=== PATIENT | male | born 1985 | race Caucasian/White ===

== ENCOUNTER 2023-06-05 15:38 | Day surgery (SDC) | payer BC, SELFPAY ==
[2023-06-05] VITALS (10 sets, daily range): BP systolic 134–172; BP diastolic 75–119; BMI 31.2; BMI 31.0
--- NOTE | 2023-06-05 10:58 | ED.GENMED ---
History of Present Illness
General
Chief Complaint: Flank Pain
Source: patient
Exam Limitations: none
Time Seen by Provider: 06/05/23 10:40
Travel History
Have you had any contact with someone who has COVID-19?: No
Do you have any symptoms of coronavirus? Fever > 100 degrees, chills, cough, shortness of breath, sore throat, loss of taste or smell, muscle aches, or headache?: No
History of Present Illness
History of Present Illness:
See MDM
Past History
Past History
ED Past Medical History: None
ED Past Surgical History: None
Social History
Personal: Single
Living: with family
Employment: Employed
Phy Exam
Physical Exam
Physical Exam:
See MDM
Course
Orders/Labs/Results
Orders:
Orders
06/05/23 10:55
CT Abd/pelvis W Iv Cont Urgent
Comment:
Reason For Exam: R flank and RLQ pain
06/05/23 10:59
Complete Blood Count/With Diff Urgent
Comprehensive Metabolic Panel Urgent
06/05/23 13:59
Piperacillin/Tazo 3.375 Gram [Zosyn] 3.375 gram in 50 ml IV NOW
06/05/23 14:18
Admit/Transfer Patient As Directed
Co-Sign Provider:
Level of Care: Post Proc/Surg Recovery
Assign to:: Medical/Surgical
Physician / Group: [facility]/Gen surg
Diagnosis: appendicitis
Reason for Overnight Stay: Standard of Care
Code Status As Directed
Resuscitation Status: Full Code
06/05/23 14:35
HYDROmorphone [Dilaudid] 0.25 mg IV PACU-Q5MPRN PRN
HYDROmorphone [Dilaudid] 0.5 mg IV PACU-Q5MPRN PRN
Meperidine [Demerol] 12.5 mg IV PACU-Q5MPRN PRN
Ondansetron Injectable [Zofran] 4 mg IV PACU-ONCEPRN PRN
Prochlorperazine [Compazine] 5 mg IV PACU-ONCEPRN PRN
Notify MD As Directed
Notify physician if: for SDS patients with known or suspected sleep obstructive sleep apnea, monitor in the
PACU.
Notify MD for any apneic/desaturation episodes
O2 Therapy [RESP] Urgent
Titrate/Wean O2 to maintain O2 sat greater than (%): 92
Special Instructions: -Provide supplemental oxygen to achieve O2 sat of 92% or greater.
-After 15 min, may wean O2 and discontinue if patient is able to maintain O2 sat of 92%
or greater during recovery period.
If patient is a discharge home, without oxygen therapy, notify anestheiologist if
unable to maintain O2 SAT of 92% or greater on room air for MD clearance.
06/05/23 14:45
Normosol (Mult Electrolytes) [Normosol-R] 1,000 ml IV PER PROTOCOL
Abnormal Lab Results
06/05/23
10:59
WBC 11.5 H 10^3/uL
(4.8-10.8)
Absolute Neuts (auto) 9.2 H 10^3/uL
(1.4-6.5)
Absolute Monos (auto) 0.7 H 10^3/uL
(0.1-0.6)
Neutrophils % 79.7 H %
(42.2-75.2)
Lymphocytes % 13.6 L %
(20.5-51.1)
Glucose 108 H mg/dl
(70-99)
06/05/23 10:59
06/05/23 10:59
Vital Signs
Initial and Last Documented VS:
Initial Vital Signs
Temp Pulse Resp BP Pulse Ox
98.0 F 89 16 166/119 99
06/05/23 10:12 06/05/23 10:12 06/05/23 10:12 06/05/23 10:12 06/05/23 10:12
Last Documented Vital Signs
Temp Pulse Resp BP Pulse Ox
99.2 F 71 16 163/98 99
06/05/23 16:23 06/05/23 16:23 06/05/23 16:23 06/05/23 16:23 06/05/23 16:23
MDM/Problems Addressed
Differential Diagnosis Includes:
HPI and MDM Narrative:
37-year-old male presenting with right flank pain. It is worse with certain movements. He does not recall any strenuous lifting. He denies urinary symptoms. Upon further questioning, patient is worried that it could be early appendicitis. Given
his history and pain, will obtain CT
Physical exam
General: Well appearing and non-toxic
HEENT: protecting airway
Neck: appears supple
CV: No evidence of cyanosis
Resp: No accessory muscle use.
Abd: Non-distended. Mild right flank and right lower quadrant tenderness without rebound
Extremities: No deformities
Neuro: alert
Psych: Normal affect
Skin: Intact
Problems Addressed including Acute and Chronic Conditions affecting care:
1. Abdominal pain
Acuity: acute
Prognosis: stable
Details: Will obtain CT to rule out early appendicitis
Updates
CT consistent with acute uncomplicated appendicitis. Will start Zosyn. Surgery made aware
Differential Diagnosis (but not limited to): Appendicitis, muscle strain, constipation, kidney stone
Testing considered: Right upper quadrant ultrasound
Drug therapy (if applicable): OTC meds, please see d/c instruction regarding Rx drugs
Amount and/or Complexity of Data Reviewed
Clinical info obtained from: Patient
External data reviewed: N/A
Labs I independently reviewed (but not limited to): Mild leukocytosis
Radiology: The CT scan was personally and independently reviewed. In addition, official CT report reviewed.
Pulse Ox: not hypoxic
EKG independently reviewed: N/A
Entry Level Web Developer: N/A
Critical Care: N/A
Risk of Complication:
Social Determinants of health: Good social support
Discussed with other providers: General surgery
Escalation of Care includes Admit/Obs: Will admit for surgery
Occasional wrong word or 'sound a like' substitutions may have occurred due to the inherent limitations of voice recognition software. Read the chart carefully and recognize, using context, where substitutions have occurred.
*Critical Care Note
Total Time (30-74mins, 75-104mins- exclusive of procedures): Not Applicable
ED Attending Note
-
Portions of this chart may have been created with voice recognition software.� Occasional wrong word or��sound alike� substitutions may have occurred due to the inherent limitations of voice recognition software.
Discharge Plan
Departure
Patient Disposition: Admit
Date of Disposition: 06/05/23
Time of Disposition: 14:01
Presentation/result/management discussed w/ accepting MD/DO: General Surgery
Discharge Problem:
Acute appendicitis
Interventions
Interventions:
*Risk Screen - Suicide Last Done: 06/05/23 11:02
*General Assessment Last Done: 06/05/23 10:12
*Neglect/Abuse Screening Last Done: 06/05/23 11:02
ED- Fall Risk Assessment Last Done: 06/05/23 11:03
*ED COVID-19 Vaccine History Last Done: 06/05/23 10:12
SW-Thnmvr-Ezipxeexiw Assessment Last Done: 06/05/23 11:04
ED-Male Genitourinary Assessment Last Done: 06/05/23 11:04
[2023-06-05 11:10] LABS: % Basophils 0.3 % (0-2); % Eosinophils 0.2 % (0-6); % Immature Granulocytes 0.3 % (0-0.5); % Lymphocytes 13.6 % (20.5-51.1); % Monocytes 5.9 % (1.7-9.3); % Neutrophils 79.7 % (42.2-75.2); Absolute Lymphocytes 1.6 10^3/uL (1.2-3.4); Absolute Monocytes 0.7 10^3/uL (0.1-0.6); Absolute Neutrophils 9.2 10^3/uL (1.4-6.5); Hematocrit 44.5 % (39.0-52.0); Hemoglobin 15.9 g/dL (13.0-18.0); Mean Corp Hgb Conc. 35.7 g/dL (33.0-37.0); Mean Corpuscular Hgb 30.2 pg (27.0-31.0); Mean Corpuscular Volume 84.4 fL (80.0-94.0); Mean Platelet Volume 9.1 fL (7.4-10.4); Nucleated Red Blood Cells % 0 % (-); Platelet Count 245 10^3/uL (130-400); Red Blood Cell Count 5.27 10^6/uL (4.70-6.10); Red Cell Dist. Width 12.6 % (11.5-14.5); White Blood Cell Count 11.5 10^3/uL (4.8-10.8)
[2023-06-05 11:25] LABS: ALT (SGPT) 35 U/L (0-50); AST (SGOT) 25 U/L (17-59); Albumin 4.5 g/dl (3.5-5.0); Alkaline Phosphatase 94 U/L (38-126); Blood Urea Nitrogen 16 mg/dl (9-20); Calcium 9.5 mg/dl (8.4-10.2); Carbon Dioxide 27 mmol/L (22-30); Chloride 104 mmol/L (98-107); Estimated Creatinine Clearance > 125 ml/min; Glucose 108 mg/dl (70-99); Potassium 4.3 mmol/L (3.5-5.1); Sodium 138 mmol/L (135-145); Total Bilirubin 1.2 mg/dl (0.2-1.3); Total Protein 6.9 g/dl (6.3-8.2); eGFR > 60.00
[2023-06-05] MEDS: ZOSYN 50 IV (14:09)
--- NOTE | 2023-06-05 14:21 | HPS.HSE ---
Addendum entered and electronically signed by Cresencio Win MD 06/05/23 14:34:
Patient is a 37 yo M with no pertinent PMH who presents with RIGHT-sided abdominal pain. Symptoms began on Tuesday. He has had progressive discomfort prompting presentation to the ED. No fevers or chills. No nausea or vomiting. Reports some
vague constipation over the past week, but no diarrhea or bloody stools.
Gen: NAD
Abd: soft, tender to palpation over RIGHT flank, ND, non-peritoneal
Labs and CT scan reviewed.
Patient is a 37 yo M p/w acute appendicitis
The natural history and pathophysiology of appendicitis was discussed. Labs and CT scan imaging were reviewed. Options for management including medical management with antibiotics versus surgical management with appendectomy were considered and
discussed. The pros and cons of both approaches was discussed. Specifically, we discussed failure of medical management and future episodes of appendicitis versus surgical risks.
Plan for a laparoscopic appendectomy. The procedure itself, as well as the risks, benefits, and alternatives was discussed. Specifically, we discussed the risks of bleeding, infection, injury to surrounding structures (bowel, bladder), staple line
leak, need for open procedure. Typical post procedure recovery including pain management and the need for 2 weeks no heavy lifting or strenuous activities was discussed. All questions answered. Consent signed.
-- Laparoscopic appendectomy
-- NPO, IVF
-- Zosyn
Original Note:
Family Physician
-
Family Physician: * NONE
Chief Complaint
-
abdominal pain
History of Present Illness
This is a 37 yo male without significant medical or surgical history who presents with around 48 hour history of right sided abdominal pain. Initially, the pain was mild but has increased over the past 24 hours causing him to present for evaluation.
He denies fevers, chills, nausea or vomiting. He has had some intermittent constipation over the last week. On exam, he is tender to the RLQ with some minimal guarding.
Medical History
Past Medical History
Past Medical History: Reports None
Past Surgical History: Reports None
Social History
Tobacco: Former Smoker
Alcohol: Occasional
Family History
Family History: Not pertinent
Allergies / Home Medications
Allergies reflects when Allergies were last updated in [employer].
Home Medications with original date entered in [employer]
Allergy/Medication List:
Patient Allergies
Allergy/AdvReac Type Severity Reaction Status Date / Time
NKA - No Known Allergies Allergy Unknown Uncoded 06/05/23 10:14
Medication Instructions Recorded Confirmed Type
No Meds [No Current Medications] 06/05/23 06/05/23 History
Review of Systems
-
History Source: Patient
A 12 point ROS was completed and negative except as noted: Yes
Physical Exam
Vital Signs
Vital Signs
Temp Pulse Resp BP Pulse Ox
98.0 F 89 16 166/119 99
06/05/23 10:12 06/05/23 10:12 06/05/23 10:12 06/05/23 10:12 06/05/23 10:12
Physical Exam
General: Well Developed and Well Nourished
HEENT: Moist mucous membranes
Respiratory: Non Labored Respirations
GI: Soft, Non Distended and Tender (RLQ tenderness)
Skin: Warm and Dry
Neuro: Awake, Alert and AO x 3
Psych: Calm
Laboratory Results
-
06/05/23 10:59
06/05/23 10:59
Laboratory Results
Total Bilirubin 1.2 mg/dl (0.2-1.3) 06/05/23 10:59
AST 25 U/L (17-59) 06/05/23 10:59
ALT 35 U/L (0-50) 06/05/23 10:59
Alkaline Phosphatase 94 U/L (38-126) 06/05/23 10:59
Data Reviewed
-
CT Scan: Image Personally Visualized and interpreted, Report Reviewed by me, Discussed with Physician, Discussed with Nurse and Discussed with Patient
Lab Data: Labs Reviewed by me, Discussed with Physician, Discussed with Nurse and Discussed with Patient
Old Records: Reviewed
Impression/Plan
-
IMPRESSION:
37 yo male presenting with RLQ abdominal pain for just over [address] imaging and exam consistent with acute appendicitis. Mild leukocytosis present. Afebrile. BP elevated, likely d/t pain.
PLAN:
Keep NPO for OR later today for laparoscopic appendectomy
Abx initiated in the ED, will continue
IVF while NPO
Analgesics/antiemetics prn
VTE ppx with SCD's
[2023-06-05] MEDS: NORMOSOL-R 1000 IV ×2 (17:15→20:32)
--- NOTE | 2023-06-05 18:13 | W.SUR.PREOP ---
Pre-Operative Surgical Note
-
I have examined this patient prior to the performance of the scheduled procedure.
The patient's condition is unchanged from the time of the current History and
Physical and the patient is able to undergo the scheduled procedure.
--- NOTE | 2023-06-05 18:36 | PTCARENOTE ---
Pt arrived from ED on stretcher. Pt able to work into room unassisted. Assessment and admission one. Pt with no c/o at this time. Pt does have abd pain but does not require pain meds at this time. Pt changed gown and did one set of OR wipes. Pt
awaiting surgery tonight.
--- NOTE | 2023-06-05 20:13 | W.IMMPOSTOP ---
Addendum entered and electronically signed by Cresencio Win MD 06/05/23 20:22:
[facility]# [id number]
Original Note:
Surgical Immed Post Op Note
-
Primary Surgeon: Quirino
Assisting Surgeon: WALTER Roth
Pre-op Diagnosis: Acute appendicitis
Post-op Diagnosis: Acute appendicitis
Procedure Performed: Laparoscopic appendectomy
Anesthesia Type: General
Specimen / Cultures:
1. Appendix
Estimated Blood Loss: 3 cc
Complications: None
Operative Findings:
1. Acutely inflamed, non-perforated, retro-cecal appendix
2. Mesentery taken with Ligasure, base with balderas load stapler
Plan:
-- Standard recovery
-- No need for abx on DC
--- NOTE | 2023-06-05 22:41 | PTCARENOTE ---
Pt received from OR at approx 2100, report from dave HENDERSON. VSS, NAD noted. Bed switched d/t pt height for comfort. VS obtained, oriented to room.
[2023-06-06 00:21] VITALS: BP 143/80
[2023-06-06 04:06] VITALS: BP 128/71
[2023-06-06] MEDS: TORADOL 15 MG IV (05:20)
[2023-06-06] MEDS: DILAUDID 0.5 MG IV (05:28)
[2023-06-06 05:46] VITALS: BP 157/96
--- NOTE | 2023-06-06 05:46 | PTCARENOTE ---
Pt ambulated to the bathroom, upon return c/o 10/10 R shoulder pain. this RN went to get pain medication for pt and found patient to be hyperventilating, SOB, and RUQ pain upon return. VS and EKG obtained, emotional support given. Dilaudid given per
prn order. See MAR and VS sheet for further information. Pt felt better s/p dilaudid and said pain was gone 15 minutes s/p administration.
[2023-06-06 07:45] VITALS: BP 135/76
[2023-06-06] MEDS: NORMOSOL-R 1000 IV (08:56)
--- NOTE | 2023-06-06 09:01 | W.PN.GS2 ---
Today's Communication / Plan
-
Dispo planning
Assessment / Plan
-
37 yo male who presented with acute appendicitis now POD #1 lap appi with nonperforated appendicitis noted intraop
AFVSS
Pain well managed
Tolerating diet
--Continue regular diet
--PRN analgesics
--Reviewed post op care with patient
--Dispo planning
Subjective Data
-
Date of Service: June 06, 2023
Patient seen and examined at bedside. Denies n/v. BL shoulder pain early this morning after ambulation, improving. Mild incisional discomfort. Tolerating diet
Objective Data
-
Intake and Output
06/05/23 06/06/23 06/07/23
06:59 06:59 06:59
Intake Total 1010 / 1010
Balance 1010 / 1010
Intake:
IV fluids (Total) 1010 / 1010
normosol 50 / 50
Other:
Number of approximated LARGE 1
amounts of urine
Vital Signs
Temp Pulse Resp BP Pulse Ox
97.7 F 48 17 135/76 97
06/06/23 07:45 06/06/23 07:45 06/06/23 07:45 06/06/23 07:45 06/06/23 07:45
Lab Results
06/05/23 10:59
06/05/23 10:59
Calcium 9.5 mg/dl (8.4-10.2) 06/05/23 10:59
Total Bilirubin 1.2 mg/dl (0.2-1.3) 06/05/23 10:59
AST 25 U/L (17-59) 06/05/23 10:59
ALT 35 U/L (0-50) 06/05/23 10:59
Alkaline Phosphatase 94 U/L (38-126) 06/05/23 10:59
Total Protein 6.9 g/dl (6.3-8.2) 06/05/23 10:59
Albumin 4.5 g/dl (3.5-5.0) 06/05/23 10:59
Physical Exam
-
NAD, Ox3
ABD soft, ND, mild incisional tenderness
Incisions clear, dry, intact without erythema
--- NOTE | 2023-06-06 13:47 | CM ---
Patient discharge prior to initial assessment. Discharged to home with no additional skilled needs. Patient arranged for transport home.
== END 2023-06-06 10:10 | disposition home or self-care (01) ==
LOC: SDS 15:38
PROVIDERS: ATTENDING PHYSICIAN Surgery; EMERGENCY PHYSICIAN Student in an Organized Health Care Education/Training Program
DX: K35.80 Unspecified acute appendicitis (principal); Z87.891 Personal history of nicotine dependence
CPT/HCPCS: 44970; 88304; 74177; 80053; 85025; 93005; 96365; 99285; Q9967